=== PATIENT | female | born 1995 ===

== ENCOUNTER 2024-12-16 21:39 | Emergency (ER) | payer BC ==
[2024-12-16] MEDS ORDERED: Sodium Chloride 0.9% 10 ML Syringe FLUSH PRN (21:49)
[2024-12-16] MEDS ORDERED: Sodium Chloride 0.9% 2.5 ML Syringe FLUSH PRN (21:49)
[2024-12-16] MEDS: droPERidol 2.5 MG/ML SDV IVPUSH ONE (21:56)
[2024-12-16 21:57] LABS: BASOPHILS ABSOLUTE AUTO 0.05 K/uL (0.00-0.20); BASOPHILS PERCENT AUTO 0.5 % (0.0-1.0); EOSINOPHILS ABSOLUTE AUTO 0.31 K/uL (0.00-0.45); EOSINOPHILS PERCENT AUTO 3.3 % (0.0-6.0); IMMATURE GRAN ABSOLUTE AUTO 0.03 K/uL (0.00-0.05); IMMATURE GRAN PERCENT AUTO 0.3 % (0.0-0.4); LYMPHOCYTES ABSOLUTE AUTO 1.99 K/uL (1.00-4.80); LYMPHOCYTES PERCENT AUTO 21.4 % (24.0-44.0); MEAN PLATELET VOLUME 9.9 fL (9.4-12.3); MONOCYTES ABSOLUTE AUTO 0.55 K/uL (0.00-0.80); MONOCYTES PERCENT AUTO 5.9 % (0.0-8.0); NEUTROPHILS ABSOLUTE AUTO 6.36 K/uL (1.80-7.70); NEUTROPHILS PERCENT AUTO 68.6 % (41.0-71.0); NRBC ABSOLUTE 0.00 K/uL (0.00-0.02); NRBC PERCENT 0.0 /100WBC (0.0-0.2); PLATELET COUNT,PLT 252 K/uL (150-400); RED BLOOD CELL COUNT 4.54 M/uL (4.10-5.30); WHITE BLOOD CELL COUNT,WBC 9.29 K/uL (3.9-11.3)
[2024-12-16] MEDS: Pantoprazole 40 MG in Sodium Chloride 0.9% 10 ML IVPUSH ONE (21:59)
[2024-12-16 22:00] LABS: APPEARANCE,URINE SLT CLOUDY; GLUCOSE,URINE NEGATIVE (NEGATIVE); OCCULT BLOOD,URINE LARGE (NEGATIVE)
[2024-12-16 22:07] LABS: EPITHELIAL CELLS,URINE FEW (NONE-FEW)
[2024-12-16 22:18] LABS: INR 1.08 (0.86-1.11)
[2024-12-16 22:36] LABS: A/G RATIO 1.1 (0.9-1.6); ALANINE AMINOTRANSFERASE,ALT 59.0 IU/L (14-63); ASPARTATE AMNIOTRANSFERASE,AST 27.0 IU/L (15-37); BILIRUBIN TOTAL 0.7 mg/dL (0.2-1.0); BLOOD UREA NITROGEN,BUN 17.0 mg/dL (7.0-18.0); CARBON DIOXIDE,CO2 25.6 mmol/L (21.0-32.0); CHLORIDE,CL 105.0 mmol/L (98-107); CREATININE 0.7 mg/dL (0.6-1.0); EST CRCL DRUG DOSING (CG) 97.21 mL/min; GLUCOSE RANDOM 93.0 mg/dL (74-106); POTASSIUM,K 3.3 mmol/L (3.5-5.1); PROTEIN TOTAL,TP 7.8 g/dL (6.4-8.2); SODIUM,NA 143.0 mmol/L (136-145)
[2024-12-16 22:37] LABS: ESTIMATED GFR 119.0 mL/min (>60)
[2024-12-16] MEDS: Potassium Chloride 20 MEQ Tab.ER PO ONE (22:43)
== END 2024-12-16 23:16 | disposition home or self-care (01) ==
LOC: MW.ED 21:39
DX: E86.0 Dehydration (principal); R19.7 Diarrhea, unspecified; R10.10 Upper abdominal pain, unspecified; R11.2 Nausea with vomiting, unspecified; Z88.4 Allergy status to anesthetic agent; Z90.49 Acquired absence of other specified parts of digestive tract; Z79.899 Other long term (current) drug therapy
CPT/HCPCS: 36415; 80053; 81001; 81025; 83690; 83735; 85025; 85610; 96361; 96374; 96375; 99283; 99284-25; A9270-GY; J1790; J2270; J2470; J7030